=== PATIENT | female | born 1930 | race Hispanic/Latino ===

== ENCOUNTER 2017-10-28 17:55 | Inpatient (IN) | payer MEDICARE ==
[~2017-10-28] VITALS: Ht 147.3 cm; Wt 38.1 kg
[2017-10-28 19:00] LABS: BASOPHILS % (AUTO) 1.2 % (0.0-5.0); LYMPHOCYTES % (AUTO) 22.8 % (21.0-51.0); MEAN CORPUSCULAR HEMOGLOBIN 32.1 pg (27.0-33.0); MEAN CORPUSCULAR VOLUME 89.1 fL (79-99); MONOCYTES % (AUTO) 7.7 % (3.0-13.0); NEUTROPHILS % (AUTO) 65.3 % (40.0-77.0); PLATELET COUNT (AUTO) 285 K/uL (130-400); RED BLOOD CELL COUNT(AUTO) 3.47 MIL/uL (4.00-5.50); RED CELL DISTRIBUTION WIDTH 14.8 % (11.0-15.5); WHITE BLOOD COUNT (AUTO) 6.6 K/uL (4.8-10.8)
[2017-10-28 19:19] LABS: CREATININE 2.4 mg/dL (0.5-1.5); POTASSIUM 3.5 mmol/L (3.5-5.1)
[2017-10-28 19:24] LABS: ALBUMIN 3.2 g/dL (3.5-5.0); BILIRUBIN,TOTAL 0.2 mg/dL (0.2-1.0); TOTAL PROTEIN, SERUM 6.4 g/dL (6.0-8.3)
[2017-10-28 19:30] LABS: INR 0.91 (0.85-1.15); PARTIAL THROMBOPLASTIN TIME 25.2 SEC (26.3-35.5); PROTHROMBIN TIME 9.6 SEC (9.6-11.6)
[2017-10-28] MEDS ORDERED: ASPIRIN 81MG TAB.CHEW ONE (19:54)
[2017-10-28] MEDS ORDERED: NITROGLYCERIN 1GM/1 INCH PACKET TD ONE (19:54)
[2017-10-28] MEDS: NITROGLYCERIN 1GM/1 INCH PACKET TD SCH (22:00)
[2017-10-29] MEDS ORDERED: ONDANSETRON HCL 4 MG/2 ML VIAL IV PRN (01:00)
[2017-10-29] MEDS ORDERED: POTASSIUM CHLORIDE 20MEQ/100ML 100 ML IV PRN (01:00)
[2017-10-29] MEDS ORDERED: NITROGLYCERIN 0.4 MG SL TAB SL PRN (01:00)
[2017-10-29] MEDS ORDERED: POTASSIUM CHLORIDE 20 MEQ ERTAB PO PRN (01:00)
[2017-10-29] MEDS ORDERED: HYDRALAZINE HCL 20 MG/ML VIAL IV PRN (01:00)
[2017-10-29] MEDS ORDERED: ACETAMINOPHEN 325 MG TAB PO PRN ×2 (01:00)
[2017-10-29] MEDS ORDERED: POTASSIUM CHLORIDE 10% ELIXIR 20 MEQ/15 ML UDCUP PO PRN (01:00)
[2017-10-29] MEDS ORDERED: LIDOCAINE HCL-MPF 1% 2ML VIAL IVP PRN (01:00)
[2017-10-29] MEDS ORDERED: NITROGLYCERIN 1GM/1 INCH PACKET TD ONE ×2 (03:28→12:19)
[2017-10-29] MEDS: NITROGLYCERIN 1GM/1 INCH PACKET TD SCH ×3 (06:00→20:36)
[2017-10-29 06:16] LABS: CREATINE KINASE, TOTAL 135 U/L (21-232); MYOGLOBIN 214 ng/mL (10-92); TROPONIN I < 0.04 ng/mL (0.00-0.06)
[2017-10-29] MEDS ORDERED: METOPROLOL TARTRATE 25 MG TAB ONE (07:54)
[2017-10-29] MEDS ORDERED: ASPIRIN 81MG TAB.CHEW ONE (07:54)
[2017-10-29] MEDS ORDERED: FAMOTIDINE 20MG TAB 20 MG TAB ONE (07:54)
[2017-10-29 08:10] VITALS: BP 149/70
[2017-10-29] MEDS ORDERED: VITA150T PO (08:25)
[2017-10-29] MEDS ORDERED: PATI8.4P PO (08:25)
[2017-10-29] MEDS ORDERED: SIMV40TA59 PO (08:25)
[2017-10-29] MEDS ORDERED: [UNRECOGNIZED DRUG - CODE] PO (08:25)
[2017-10-29 08:41] LABS: CREATINE KINASE MB 2.9 ng/mL (0.5-3.6); CREATINE KINASE, TOTAL 113 U/L (21-232); MYOGLOBIN 187 ng/mL (10-92); TROPONIN I < 0.04 ng/mL (0.00-0.06)
[2017-10-29] MEDS: FAMOTIDINE 20MG TAB 20 MG TAB PO SCH ×2 (09:00→20:32)
[2017-10-29] MEDS: ASPIRIN 81MG TAB.CHEW PO SCH (09:00)
[2017-10-29] MEDS: METOPROLOL TARTRATE 25 MG TAB PO SCH ×2 (09:00→20:31)
[2017-10-29 11:19] LABS: CREATININE 2.3 mg/dL (0.5-1.5); POTASSIUM 3.8 mmol/L (3.5-5.1)
[2017-10-29] MEDS ORDERED: ACETAMINOPHEN 325 MG TAB ONE ×2 (12:51→15:31)
[2017-10-29] MEDS ORDERED: LIDOCAINE 5% TOPICAL PATCH TP ONE (14:59)
[2017-10-29 18:52] VITALS: BP 153/68
[2017-10-29] MEDS ORDERED: LIDOCAINE 5% TOPICAL PATCH TP PRN (19:15)
[2017-10-29 23:39] VITALS: BP 140/60
[2017-10-30 03:56] VITALS: BP 131/60
[2017-10-30] MEDS: NITROGLYCERIN 1GM/1 INCH PACKET TD SCH ×3 (05:15→20:16)
[2017-10-30 07:00] VITALS: BP 159/64
[2017-10-30] MEDS: METOPROLOL TARTRATE 25 MG TAB PO SCH (08:19)
[2017-10-30] MEDS: FAMOTIDINE 20MG TAB 20 MG TAB PO SCH ×2 (08:20→20:10)
[2017-10-30] MEDS: ASPIRIN 81MG TAB.CHEW PO SCH (08:20)
[2017-10-30 11:27] VITALS: BP 156/59
[2017-10-30] MEDS: LISINOPRIL 5 MG TABLET PO SCH (13:13)
[2017-10-30 16:00] VITALS: BP 151/50
[2017-10-30 19:00] VITALS: BP 133/56
[2017-10-30] MEDS: CARVEDILOL 6.25 MG TABLET PO SCH (20:11)
[2017-10-30] MEDS ORDERED: ATORVASTATIN CALCIUM 20 MG TABLET PO SCH (21:00)
[2017-10-31] VITALS: BP 98/53
[2017-10-31 04:00] VITALS: BP 127/50
[2017-10-31] MEDS: NITROGLYCERIN 1GM/1 INCH PACKET TD SCH (05:48)
[2017-10-31 07:00] VITALS: BP 133/66
[2017-10-31] MEDS ORDERED: VITAMIN B COMPLEX 1 CAPSULE PO SCH (09:00)
[2017-10-31] MEDS ORDERED: FUROSEMIDE 20 MG TABLET PO SCH (09:00)
[2017-10-31] MEDS ORDERED: ASPI-1197 PO (09:15)
[2017-10-31] MEDS ORDERED: SIMV20TA6 PO (09:15)
[2017-10-31] MEDS ORDERED: LISI-617 PO (09:55)
[2017-10-31] MEDS ORDERED: CARV6.2579 PO (09:55)
[2017-10-31 10:48] VITALS: BP 133/66
[2017-10-31] MEDS: ASPIRIN 81MG TAB.CHEW PO SCH (10:48)
[2017-10-31] MEDS: CARVEDILOL 6.25 MG TABLET PO SCH (10:48)
[2017-10-31] MEDS: LISINOPRIL 5 MG TABLET PO SCH (10:48)
[2017-10-31] MEDS: FAMOTIDINE 20MG TAB 20 MG TAB PO SCH (10:50)
[2017-10-31] MEDS ORDERED: VELTASSA PO SCH (12:00)
== END 2017-10-31 11:39 | disposition home or self-care (01) | DRG 313 ==
LOC: EDH 17:55 → EDHIP 19:50 → OBSVTOIN 19:50 → 3BH 10-29 18:34
PROVIDERS: ADMIT Internal Medicine; ATTEND Internal Medicine
DX: R07.89 Other chest pain (principal); N18.4 Chronic kidney disease, stage 4 (severe); I42.0 Dilated cardiomyopathy; I13.0 Hypertensive heart and chronic kidney disease with heart failure and stage 1 through stage 4 chronic kidney disease, or unspecified chronic kidney disease; I50.22 Chronic systolic (congestive) heart failure; Q60.0 Renal agenesis, unilateral; I34.0 Nonrheumatic mitral (valve) insufficiency; E78.5 Hyperlipidemia, unspecified; F17.210 Nicotine dependence, cigarettes, uncomplicated; Z86.73 Personal history of transient ischemic attack (TIA), and cerebral infarction without residual deficits; Z79.82 Long term (current) use of aspirin
CPT/HCPCS: 36415; 71045; 80048; 80053; 82550; 82553; 83874; 83880; 84484; 85025; 85610; 85730; 93005; 93306

== ENCOUNTER 2018-07-06 01:09 | Emergency (ER) | payer MEDICARE ==
[~2018-07-06 01:09] MED LIST: ASPI-1197 PO; CARV6.2579 PO; LISI-617 PO; PATI8.4P PO; SIMV20TA6 PO; VITA150T PO
[2018-07-06] MEDS ORDERED: ACETAMINOPHEN 325 MG TAB ONE (02:15)
[2018-07-06] MEDS ORDERED: TETANUS/DIPHTHERIA TOXOID [ADULT] 0.5 ML VIAL IM ONE (02:17)
== END 2018-07-06 03:25 | disposition home or self-care (01) ==
LOC: EDH 01:09
DX: S01.81XA Laceration without foreign body of other part of head, initial encounter (principal); S40.012A Contusion of left shoulder, initial encounter; S50.02XA Contusion of left elbow, initial encounter; S60.212A Contusion of left wrist, initial encounter; E78.5 Hyperlipidemia, unspecified; I10 Essential (primary) hypertension; Z90.49 Acquired absence of other specified parts of digestive tract; Z79.899 Other long term (current) drug therapy; W01.198A Fall on same level from slipping, tripping and stumbling with subsequent striking against other object, initial encounter; Y93.89 Activity, other specified; Y92.89 Other specified places as the place of occurrence of the external cause; Y99.8 Other external cause status
CPT/HCPCS: 70450; 72125; 73030; 73070; 73110; 90471; 90714

== ENCOUNTER 2018-07-30 17:29 | Observation (INO) | payer MEDICARE ==
[~2018-07-30] VITALS: Ht 152.4 cm; Wt 36.8 kg
[2018-07-30 18:23] LABS: BASOPHILS % (AUTO) 1.1 % (0.0-5.0); EOSINOPHILS % (AUTO) 5.2 % (0.0-8.0); HEMATOCRIT 34.7 % (36-48); LYMPHOCYTES % (AUTO) 16.2 % (21.0-51.0); MEAN CORPUSCULAR HEMOGLOBIN 30.8 pg (27.0-33.0); MEAN CORPUSCULAR HGB CONC 33.8 g/dL (32.0-36.0); MEAN CORPUSCULAR VOLUME 91.2 fL (79-99); MONOCYTES % (AUTO) 6.6 % (3.0-13.0); NEUTROPHILS % (AUTO) 70.9 % (40.0-77.0); PLATELET COUNT (AUTO) 287 K/uL (130-400); RED BLOOD CELL COUNT(AUTO) 3.81 MIL/uL (4.00-5.50); RED CELL DISTRIBUTION WIDTH 15.1 % (11.0-15.5); WHITE BLOOD COUNT (AUTO) 8.2 K/uL (4.8-10.8)
[2018-07-30 18:35] LABS: CREATININE 2.8 mg/dL (0.5-1.5); POTASSIUM 4.5 mmol/L (3.5-5.1)
[2018-07-30 18:38] LABS: INR 0.9 (0.85-1.15); PARTIAL THROMBOPLASTIN TIME 26.8 SEC (26.3-35.5); PROTHROMBIN TIME 9.5 SEC (9.6-11.6)
[2018-07-30 18:39] LABS: ALBUMIN 3.9 g/dL (3.5-5.0); BILIRUBIN,TOTAL 0.2 mg/dL (0.2-1.0); TOTAL PROTEIN, SERUM 7.4 g/dL (6.0-8.3)
[2018-07-30 19:36] LABS: APPEARANCE,URINE Clear (CLEAR); BILIRUBIN,URINE Negative (NEGATIVE); COLOR,URINE Yellow (YELLOW); GLUCOSE, URINE (UA) Negative (NEGATIVE); KETONES,URINE Negative (NEGATIVE); LEUKOCYTE ESTERASE ,URINE Negative (NEGATIVE); NITRATE,URINE Negative (NEGATIVE); OCCULT BLOOD,URINE Negative (NEGATIVE); PH,URINE 5.5 (5.0-8.0); PROTEIN,URINE POS 2+ (NEGATIVE); UROBILINOGEN,URINE 0.2 mg/dL (0.2-1.0)
[2018-07-30 20:08] LABS: RBC,URINE 0-1 /HPF (0-1); WBC,URINE 0-1 /HPF (0-1)
[2018-07-30 20:10] LABS: BACTERIA,URINE Rare /HPF (None Seen); SQUAMOUS EPITHELIAL CELL,UR Rare /HPF (0-2)
[2018-07-31] VITALS (7 sets, daily range): BP systolic 134–170; BP diastolic 54–73
[2018-07-31] MEDS ORDERED: FOLI0.8T22 PO (02:52)
[2018-07-31] MEDS ORDERED: CHOL100046 PO (02:52)
[2018-07-31] MEDS ORDERED: SODI650T PO (02:52)
[2018-07-31] MEDS ORDERED: AMLO5TAB7 PO (02:52)
[2018-07-31 02:55] LABS: AMPHET/METH SCREEN,URINE NEGATIVE (NEGATIVE); BARBITURATE SCREEN, URINE NEGATIVE (NEGATIVE); BENZODIAZEPINES SCREEN,URINE NEGATIVE (NEGATIVE); CANNABINOID SCREEN,URINE NEGATIVE (NEGATIVE); COCAINE SCREEN,URINE NEGATIVE (NEGATIVE); OPIATE SCREEN,URINE NEGATIVE (NEGATIVE); PHENCYCLIDINE SCREEN,URINE NEGATIVE (NEGATIVE)
[2018-07-31] MEDS ORDERED: ACETAMINOPHEN 325 MG TAB PO PRN (03:00)
[2018-07-31] MEDS ORDERED: ONDANSETRON HCL 4 MG/2 ML VIAL IV PRN (03:00)
[2018-07-31] MEDS: SODIUM CHLORIDE 0.9% 1000ML 1,000 ML IV SCH ×2 (04:09→21:44)
[2018-07-31 05:22] LABS: HEMATOCRIT 31.3 % (36-48); MEAN CORPUSCULAR HEMOGLOBIN 30.3 pg (27.0-33.0); MEAN CORPUSCULAR HGB CONC 33.5 g/dL (32.0-36.0); MEAN CORPUSCULAR VOLUME 90.5 fL (79-99); PLATELET COUNT (AUTO) 252 K/uL (130-400); RED BLOOD CELL COUNT(AUTO) 3.46 MIL/uL (4.00-5.50); RED CELL DISTRIBUTION WIDTH 15.2 % (11.0-15.5); WHITE BLOOD COUNT (AUTO) 6.2 K/uL (4.8-10.8)
[2018-07-31 06:00] LABS: ALBUMIN 3.3 g/dL (3.5-5.0); BILIRUBIN,TOTAL 0.3 mg/dL (0.2-1.0); CREATININE 2.6 mg/dL (0.5-1.5); POTASSIUM 4.2 mmol/L (3.5-5.1); TOTAL PROTEIN, SERUM 6.4 g/dL (6.0-8.3)
[2018-07-31] MEDS: ENOXAPARIN SODIUM 30 MG/0.3 ML SQ SCH (07:37)
[2018-07-31] MEDS: PANTOPRAZOLE SODIUM 40 MG TABLET.DR PO SCH (07:37)
[2018-07-31 13:12] LABS: ABG BASE EXCESS -7.5 mmol/L (-2.0-3.0); ABG HCO3 18.1 mmol/L (21.0-28.0); ABG OXYGEN SATURATION 96.3 % (95.0-99.0); ABG PCO2 38 mmHg (32-45)
[2018-07-31] MEDS ORDERED: SIMVASTATIN 20 MG TABLET PO SCH (21:00)
[2018-07-31] MEDS ORDERED: LAMOTRIGINE 25 MG TAB PO SCH (21:00)
[2018-07-31] MEDS: SODIUM BICARBONATE 650 MG TAB PO SCH (22:06)
[2018-08-01 04:36] VITALS: BP 128/60
[2018-08-01 08:12] VITALS: BP 165/78
[2018-08-01] MEDS ORDERED: PATIROMER CALCIUM SORBITEX 8.4 GM PO SCH (09:00)
[2018-08-01] MEDS ORDERED: FOLIC ACID/VITAMIN B COMP W-C 1 MG CAPSULE PO SCH (09:00)
[2018-08-01] MEDS ORDERED: ASPIRIN 81MG TAB.CHEW PO SCH (09:00)
[2018-08-01] MEDS ORDERED: CHOLECALCIFEROL 1000 UNIT PO SCH (09:00)
[2018-08-01] MEDS ORDERED: VITAMIN B COMPLEX 1 CAPSULE PO SCH (09:00)
[2018-08-01] MEDS ORDERED: AMLODIPINE BESYLATE 5 MG TAB PO SCH (09:00)
[2018-08-01] MEDS: SODIUM BICARBONATE 650 MG TAB PO SCH (10:03)
[2018-08-01] MEDS: PANTOPRAZOLE SODIUM 40 MG TABLET.DR PO SCH (10:03)
[2018-08-01] MEDS: ENOXAPARIN SODIUM 30 MG/0.3 ML SQ SCH (10:04)
[2018-08-01 11:54] VITALS: BP 140/58
== END 2018-08-01 15:36 | disposition home or self-care (01) ==
LOC: EDH 17:29 → EDHIP 23:00 → 3AH 07-31 01:02
PROVIDERS: ADMIT Internal Medicine; ATTEND Internal Medicine
DX: R41.82 Altered mental status, unspecified (principal); R25.1 Tremor, unspecified; E11.22 Type 2 diabetes mellitus with diabetic chronic kidney disease; I13.0 Hypertensive heart and chronic kidney disease with heart failure and stage 1 through stage 4 chronic kidney disease, or unspecified chronic kidney disease; N18.4 Chronic kidney disease, stage 4 (severe); I50.42 Chronic combined systolic (congestive) and diastolic (congestive) heart failure; E44.1 Mild protein-calorie malnutrition; E78.5 Hyperlipidemia, unspecified; G31.9 Degenerative disease of nervous system, unspecified; I34.0 Nonrheumatic mitral (valve) insufficiency; Z68.1 Body mass index [BMI] 19.9 or less, adult; Z82.3 Family history of stroke
CPT/HCPCS: 36415 ×2; 36600; 70450; 70551; 80053 ×2; 80305; 81001; 82803; 83735; 84484; 85025; 85027; 85610; 85730; 93005; 95819; 96360; 96361; 96372 ×2; 99284; G0378 ×41; J1650 ×2

== ENCOUNTER 2019-03-03 15:39 | Emergency (ER) | payer MEDICARE ==
[~2019-03-03 15:39] MED LIST changes: +AMLO5TAB9 PO; +CHOL100046 PO; +DOXY100C2 PO; +FOLI0.8T22 PO; -LISI-617 PO; +SODI650T PO
[2019-03-03] MEDS ORDERED: ACETAMINOPHEN EXTRA STRENGTH 500 MG TABLET ONE (16:35)
== END 2019-03-03 18:12 | disposition home or self-care (01) ==
LOC: EDH 15:39
DX: S00.83XA Contusion of other part of head, initial encounter (principal); S80.02XA Contusion of left knee, initial encounter; S00.33XA Contusion of nose, initial encounter; I12.9 Hypertensive chronic kidney disease with stage 1 through stage 4 chronic kidney disease, or unspecified chronic kidney disease; N18.4 Chronic kidney disease, stage 4 (severe); E78.5 Hyperlipidemia, unspecified; Z95.0 Presence of cardiac pacemaker; W01.0XXA Fall on same level from slipping, tripping and stumbling without subsequent striking against object, initial encounter; Y93.01 Activity, walking, marching and hiking; Y92.89 Other specified places as the place of occurrence of the external cause; Y99.8 Other external cause status
CPT/HCPCS: 70450; 70486; 73562

== ENCOUNTER → 2019-06-02 | Outpatient (CLI) | payer MEDICARE ==
[~2019-06-02] MED LIST changes: +AMOX-426 PO; +FERS325 PO; +GUAI100S13 PO; +SIMV-43 PO; -SIMV20TA6 PO; +TORS10TA18 PO
== END | disposition home or self-care (01) ==
LOC: OIH 15:05
PROVIDERS: ATTEND Internal Medicine Cardiovascular Disease
DX: M19.012 Primary osteoarthritis, left shoulder (principal); M85.812 Other specified disorders of bone density and structure, left shoulder; M85.612 Other cyst of bone, left shoulder; M79.602 Pain in left arm; M79.622 Pain in left upper arm
CPT/HCPCS: 73030; 73060

== ENCOUNTER 2019-06-10 14:09 | Emergency (ER) | payer MEDICARE ==
[~2019-06-10 14:09] MED LIST changes: -AMOX-426 PO; -FERS325 PO; -GUAI100S13 PO; -TORS10TA18 PO
[2019-06-10 14:33] LABS: BASOPHILS % (AUTO) 0.7 % (0.0-5.0); EOSINOPHILS % (AUTO) 5.6 % (0.0-8.0); HEMATOCRIT 36.3 % (36-48); LYMPHOCYTES % (AUTO) 19.7 % (21.0-51.0); MEAN CORPUSCULAR HEMOGLOBIN 32.2 pg (27.0-33.0); MEAN CORPUSCULAR HGB CONC 34.7 g/dL (32.0-36.0); MEAN CORPUSCULAR VOLUME 92.6 fL (79-99); MONOCYTES % (AUTO) 6.6 % (3.0-13.0); NEUTROPHILS % (AUTO) 67.4 % (40.0-77.0); PLATELET COUNT (AUTO) 234 K/uL (130-400); RED BLOOD CELL COUNT(AUTO) 3.92 MIL/uL (4.00-5.50); RED CELL DISTRIBUTION WIDTH 14.7 % (11.0-15.5); WHITE BLOOD COUNT (AUTO) 6.3 K/uL (4.8-10.8)
[2019-06-10 14:45] LABS: CREATININE 4.1 mg/dL (0.5-1.5)
[2019-06-10 14:48] LABS: INR 0.94 (0.85-1.15); PARTIAL THROMBOPLASTIN TIME 24.1 SEC (26.3-35.5); PROTHROMBIN TIME 9.9 SEC (9.6-11.6)
[2019-06-10 15:05] LABS: ALBUMIN 2.7 g/dL (3.5-5.0); BILIRUBIN,TOTAL 0.2 mg/dL (0.2-1.0); TOTAL PROTEIN, SERUM 6.1 g/dL (6.0-8.3)
[2019-06-10] MEDS ORDERED: LIDOCAINE HCL 2% VISCOUS 15 ML UDCUP ONE (15:42)
[2019-06-10] MEDS ORDERED: MAG HYDROX/AL HYDROX/SIMETH ES 30 ML SUSP UDCUP ONE (15:42)
[2019-06-23] MEDS ORDERED: FERS325 PO (02:11)
[2019-06-23] MEDS ORDERED: TORS10TA18 PO (02:11)
[2019-06-25] MEDS ORDERED: AMOX-426 PO (15:33)
[2019-06-25] MEDS ORDERED: GUAI100S13 PO (16:32)
== END 2019-06-10 17:56 | disposition home or self-care (01) ==
LOC: EDH 14:09
DX: R00.2 Palpitations (principal); I12.9 Hypertensive chronic kidney disease with stage 1 through stage 4 chronic kidney disease, or unspecified chronic kidney disease; N18.4 Chronic kidney disease, stage 4 (severe); E78.5 Hyperlipidemia, unspecified; I25.10 Atherosclerotic heart disease of native coronary artery without angina pectoris; Z95.0 Presence of cardiac pacemaker; Z72.0 Tobacco use
CPT/HCPCS: 36415; 71045; 80053; 83690; 84484; 85025; 85610; 85730; 93005